=== PATIENT | female | born 1995 | race American Indian/Alaskan Native ===

== ENCOUNTER 2017-08-25 08:20 | Emergency (ER) | payer OTHER ==
[2017-08-25 08:49] LABS: Basophils # (Auto) 0.1 K/mm3 (0.0-0.1); Basophils % (Auto) 0.5 % (0.0-1.8); Eosinophils % (Auto) 0.1 % (0.0-4.3); Lymphocytes # (Auto) 3.2 K/mm3 (1.2-5.4); Lymphocytes % (Auto) 27.2 % (13.4-35.0); Mean Corpuscular HGB Conc 30 % (30-34); Mean Corpuscular Hemoglobin 27 pg (28-32); Mean Corpuscular Volume 87 fl (79-97); Monocytes # (Auto) 0.7 K/mm3 (0.0-0.8); Platelet Count 253 K/mm3 (140-440); Red Blood Count 4.18 M/mm3 (3.65-5.03); Red Cell Distribution Width 14.2 % (13.2-15.2)
[2017-08-25 08:55] LABS: Hematocrit 36.5 % (30.3-42.9); Hemoglobin 11.1 gm/dl (10.1-14.3)
[2017-08-25 09:10] LABS: Alanine Aminotransferase 9 units/L (7-56); Albumin 4.7 g/dL (3.9-5); BUN/Creatinine Ratio 13; Blood Urea Nitrogen 8 mg/dL (7-17); Calcium 9.3 mg/dL (8.4-10.2); Hemolysis Index 1
[2017-08-25 12:01] LABS: Bilirubin,Urine NEG (Negative); Blood,Urine LG (Negative); Color,Urine Yellow (Yellow); Mucus,Urine FEW /HPF
[2017-08-25 13:12] LABS: HCG Qualitative,Urine Negative (Negative)
[2017-08-25] MEDS ORDERED: NACL 0.9% 1000 ML 1,000 ML IV ONE (13:40)
[2017-08-25] MEDS ORDERED: TORADOL IV ONE (13:40)
[2017-08-25] MEDS ORDERED: ZOFRAN IV ONE (13:40)
--- NOTE | 2017-08-25 13:41 | Emergency Department Report ---
Blank Doc - Documentation Documentation: Patient is a 21-year-old Female who presented with nausea vomiting diarrhea for the past day. Patient states that she is on menses and there was a while when she is on her menses she gets sick. Patient states she is also feels weak and fatigued with chills. Patient states that she has some diffuse abdominal discomfort as well as cramping is consistent with her menses. Patient was sent to the treatment room for IV fluids and meds and will be reassessed by the [facility]
[2017-08-25] MEDS ORDERED: TYLENOL PO ONE (15:59)
--- NOTE | 2017-08-25 16:05 | Emergency Department Report ---
ED N/V/D HPI - General Chief complaint: Nausea/Vomiting/Diarrhea Stated complaint: NAUSEA/VOMITING/ABDOMINAL PAIN Time Seen by Provider: 08/25/17 13:28 Source: patient Mode of arrival: Ambulatory Limitations: No Limitations - History of Present Illness Initial comments: 21-year-old [place] female comes in with nausea vomiting diarrhea since last night. Patient reports she started her period on 08/24/2017 and this is her usual state when she has her menses. Patient reports that she is not having any heavy periods at this time. She reports that she feels much better since happened fluids. She does admit to some nausea with some suprapubic cramping and pain. She does not have a [facility] doctor or primary care provider. MD complaint: nausea, vomiting -: During the night Associated Abdominal Pain: Yes Severity: moderate Pain Scale: 5 (menses) Quality: cramping Improves with: none Worsens with: none - Related Data Previous Rx's Medication Instructions Recorded Last Taken Type Ibuprofen 400 mg PO Q6H PRN #20 tablet 08/25/17 Unknown Rx Ondansetron [Zofran Odt] 4 mg PO Q8HR #6 tab.rapdis 08/25/17 Unknown Rx Allergies Allergy/AdvReac Type Severity Reaction Status Date / Time sulfamethoxazole Allergy Unknown Verified 08/25/17 08:29 [From Bactrim] trimethoprim [From Bactrim] Allergy Unknown Verified 08/25/17 08:29 ED Review of Systems ROS: Stated complaint: NAUSEA/VOMITING/ABDOMINAL PAIN Other details as noted in HPI Constitutional: denies: chills, fever Eyes: denies: eye pain, eye discharge, vision change ENT: denies: ear pain, throat pain Respiratory: denies: cough, shortness of breath, wheezing Cardiovascular: denies: chest pain, palpitations Endocrine: no symptoms reported Gastrointestinal: abdominal pain, nausea, vomiting Genitourinary: denies: urgency, dysuria, discharge Musculoskeletal: denies: back pain, joint swelling, arthralgia Skin: denies: rash, lesions Neurological: denies: headache, weakness, paresthesias Psychiatric: denies: anxiety, depression Hematological/Lymphatic: denies: easy bleeding, easy bruising ED Past Medical Hx - Past Medical History Previous Medical History?: Yes Hx Asthma: Yes - Surgical History Past Surgical History?: No - Social History Smoking Status: Never Smoker Substance Use Type: None - Medications Home Medications: Home Medications Medication Instructions Recorded Confirmed Last Taken Type Ibuprofen 400 mg PO Q6H PRN #20 tablet 08/25/17 Unknown Rx Ondansetron [Zofran Odt] 4 mg PO Q8HR #6 tab.rapdis 08/25/17 Unknown Rx ED Physical Exam - General Limitations: No Limitations General appearance: alert, in no apparent distress - Head Head exam: Present: atraumatic, normocephalic - ENT ENT exam: Present: mucous membranes moist - Neck Neck exam: Present: normal inspection - Respiratory Respiratory exam: Present: normal lung sounds bilaterally. Absent: respiratory distress - Cardiovascular Cardiovascular Exam: Present: regular rate, normal rhythm. Absent: systolic murmur, diastolic murmur, rubs, gallop - GI/Abdominal GI/Abdominal exam: Present: soft, tenderness (suprapubic) - Extremities Exam Extremities exam: Present: normal inspection - Neurological Exam Neurological exam: Present: alert, oriented X3 - Psychiatric Psychiatric exam: Present: normal affect, normal mood - Skin Skin exam: Present: warm, dry, intact, normal color. Absent: rash ED Course Vital Signs 08/25/17 08/25/17 08:24 14:04 Temperature 97.6 F Pulse Rate 96 H Respiratory 24 18 Rate Blood Pressure 124/76 O2 Sat by Pulse 100 Oximetry ED Medical Decision Making - Lab Data Result diagrams: 08/25/17 08:36 08/25/17 08:36 - Medical Decision Making Patient has been evaluated by this provider as well as Dr. Shaikh. Patient's had fluids and Zofran and Toradol. She reports she feels much better. Discussed the patient I will refer her to [facility] discharge her on ibuprofen and Zofran patient verbalized understanding. Critical care attestation.: If time is entered above; I have spent that time in minutes in the direct care of this critically ill patient, excluding procedure time. ED Disposition Clinical Impression: Nausea and vomiting in adult patient Disposition: DC-01 TO HOME OR SELFCARE Is pt being admited?: No Does the pt Need Aspirin: No Condition: Stable Instructions: Acute Nausea and Vomiting (ED), Abdominal Pain (ED) Additional Instructions: Take medication as prescribed. Follow up with the [facility] provider. Prescriptions: Ibuprofen 400 mg PO Q6H PRN #20 tablet PRN Reason: Pain Ondansetron [Zofran Odt] 4 mg PO Q8HR #6 tab.rapdis Referrals: PRIMARY CARE, [Primary Care Provider] - 3-5 Days [facility] [Provider Group] - 3-5 Days Forms: Work/School Release Form(ED), Accompanied Note
[2017-08-25 16:48] VITALS: BP 124/70
== END 2017-08-25 16:47 | disposition home or self-care (01) ==
LOC: ED 08:20
DX: R11.2 Nausea with vomiting, unspecified (principal); R19.7 Diarrhea, unspecified; R10.30 Lower abdominal pain, unspecified; J45.909 Unspecified asthma, uncomplicated; Z88.2 Allergy status to sulfonamides
CPT/HCPCS: 36415; 80053; 81001; 81025; 85025; 96361; 96374; 96375; 99283; J1885; J2405; J7030